=== PATIENT | male | born 1995 | race Caucasian/White ===

== ENCOUNTER 2020-01-20 11:26 | Emergency (ER) | payer BC ==
[~2020-01-20] VITALS: Ht 177.8 cm; Wt 128.0 kg
[2020-01-20] MEDS ORDERED: METOCLOPRAMIDE INJ 10MG/2ML VIAL (J2765 PER 1) IV ONE (12:00)
[2020-01-20] MEDS ORDERED: NS 1,000 ML IV ONE (12:00)
[2020-01-20 12:34] LABS: BASO # 0.1 10^3/uL (0.0-0.2); BASO % 0.8 % (0.0-1.0); EOS # 0.1 10^3/uL (0.0-0.5); EOS % 1.8 % (0.0-3.0); HEMATOCRIT 45.2 % (42.0-52.0); HEMOGLOBIN 15.6 g/dl (13.5-17.5); LYMPH # 1.5 10^3/uL (1.5-5.0); LYMPH % 20.9 % (24.0-44.0); MEAN CORPUSCULAR HEMOGLOBIN 29.5 pg (27.0-33.0); MEAN CORPUSCULAR HGB CONC 34.5 g/dl (32.0-36.5); MEAN CORPUSCULAR VOLUME 85.6 fl (80.0-96.0); MONO # 0.6 10^3/uL (0.0-0.8); MONO % 8.3 % (0.0-5.0); NEUTROPHILS # 4.8 10^3/uL (1.5-8.5); NEUTROPHILS % 67.5 % (36.0-66.0); PLATELET COUNT, AUTOMATED 243 10^3/uL (150-450); RED BLOOD COUNT 5.28 10^6/uL (4.30-6.10); WHITE BLOOD COUNT 7.1 10^3/uL (4.0-10.0)
[2020-01-20 12:45] LABS: INR 0.87
[2020-01-20 13:01] LABS: AMPHETAMINES LEVEL URINE NEGATIVE (NEGATIVE); BARBITURATES URINE NEGATIVE (NEGATIVE); BENZODIAZEPINES URINE NEGATIVE (NEGATIVE); CANNABINOIDS URINE NEGATIVE (NEGATIVE); COCAINE METABOLITE URINE POSITIVE (NEGATIVE); METHADONE URINE NEGATIVE (NEGATIVE); OPIATES URINE NEGATIVE (NEGATIVE); PHENCYCLIDINE URINE NEGATIVE (NEGATIVE)
[2020-01-20 13:20] LABS: ALT/SGPT 71 U/L (12-78); BLOOD UREA NITROGEN 17 MG/DL (7-18); CALCIUM LEVEL 9.5 MG/DL (8.5-10.1); CARBON DIOXIDE LEVEL 27 MEQ/L (21-32); CHLORIDE LEVEL 105 MEQ/L (98-107); CREATININE FOR GFR 1.19 MG/DL (0.70-1.30); GLOMERULAR FILTRATION RATE > 60.0 (>60); GLUCOSE, FASTING 95 MG/DL (70-100); POTASSIUM SERUM 4.3 MEQ/L (3.5-5.1); SODIUM LEVEL 139 MEQ/L (136-145)
[2020-01-20 13:21] LABS: ACETAMINOPHEN LEVEL < 2.0 UG/ML (10.0-30.0); ALBUMIN 4.2 GM/DL (3.2-5.2); BILIRUBIN,DIRECT 0.1 MG/DL (0.0-0.2); BILIRUBIN,TOTAL 0.2 MG/DL (0.2-1.0); CK-MB VALUE MASS 3.7 NG/ML (<3.6); CPK CREATINE PHOSPHOKINASE 979 U/L (39-308); ETHYL ALCOHOL (ETHANOL) < 0.003 % (0.000-0.010); MB/CK RELATIVE INDEX 0.38 (< OR =4); SALICYLATE LEVEL 4.9 MG/DL (5.0-30.0); TOTAL PROTEIN 7.3 GM/DL (6.4-8.2); TROPONIN I < 0.02 NG/ML (< 0.10)
[2020-01-20 14:11] VITALS: BP 134/60
--- NOTE | 2020-02-20 07:59 | REP ---
NONCONTRAST HEAD CT CLINICAL: Altered mental status. TECHNIQUE: Axial noncontrast images from the skull base to the vertex with coronal reformations. FINDINGS: The ventricles, sulci, and cisterns are symmetric and normal. Yu-white differentiation is maintained. No acute intracranial hemorrhage, mass, or mass effect. No extra-axial fluid collection. Calvarium is intact. Paranasal sinuses and mastoid air cells are clear. IMPRESSION: Negative noncontrast head CT. No evidence for acute intracranial pathology or trauma/injury. MTDD
--- NOTE | 2020-02-20 08:05 | REP ---
NONCONTRAST CT OF THE NECK CLINICAL: Neck and throat pain. Evaluate for subcutaneous emphysema or pneumomediastinum. TECHNIQUE: Axial noncontrast images from the skull base to the thoracic inlet with coronal and sagittal reformations. FINDINGS: Nasopharyngeal, oropharyngeal, and visualized tracheal airway appears patent, midline, and normal. The surrounding soft tissues of the neck including parapharyngeal and retropharyngeal spaces are symmetric and normal. No mass or mass effect. No evidence for acute injury. No extraluminal gas or subcutaneous emphysema. No foreign body. The visualized sinuses and mastoid air cells are clear. The osseous structures are intact and normal. Bilateral glandular tissue including parotid glands, submandibular, and submental glands are symmetric and normal. No significant adenopathy. IMPRESSION: Normal noncontrast CT of the neck. MTDD
--- NOTE | 2020-02-20 08:08 | REP ---
CHEST X-RAY CLINICAL: Altered mental status. TECHNIQUE: PA and lateral. FINDINGS: Mediastinum and cardiac silhouette normal. Lung galvan clear. No acute consolidation, effusion, or pneumothorax. Skeletal structures are intact. IMPRESSION: Normal chest x-ray. No acute cardiopulmonary process. MTDD
== END 2020-01-20 14:14 | disposition home or self-care (01) ==
LOC: M ED 11:26
DX: M62.82 Rhabdomyolysis (principal); R51 Headache; M54.2 Cervicalgia
CPT/HCPCS: 70450; 70490; 71046; 80048; 80076; 80307; 81001; 82550; 82553; 84443; 84484; 85025; 85610; 94760; 96361; 96374; 99284; G0480; J2765